=== PATIENT | female | born 1955 | race Caucasian/White ===

== ENCOUNTER → 2017-05-16 | Outpatient (CLI) | payer OTHER ==
[~2017-05-16] MED LIST: CRES5TAB PO; LISI10TA4 PO; OMEP20CA3 PO
--- NOTE | 2017-05-16 11:39 | REPMRS ---
Patient History The patient states she had a clinical breast exam in 02/14 Patient is postmenopausal and is nulliparous. Family history of prostate cancer in father at age 50 or over, breast cancer in sister at age 50 or over, and breast cancer in mother under age 50. Benign cyst aspiration of the right breast, 2011. Digital Woman Screen Mammo: May 16, 2017 - Exam #: [id number] Bilateral CC and MLO view(s) were taken. Technologist: Reva Doshi, Technologist Prior study comparison: May 07, 2016, digital woman screen mammo performed at [facility]. May 02, 2015, digital woman screen mammo performed at [facility]. FINDINGS: The breast tissue is heterogeneously dense. This may lower the sensitivity of mammography. There is a fairly symmetric fibroglandular pattern in both breasts. There has been no interval development of masses, areas of architectural distortion or clusters of microcalcifications typical of malignancy. ASSESSMENT: BI-RADS/ACR category 2 mammogram. Benign finding(s). Given the family history and heterogeneously dense breast parenchyma, consider MRI for further evaluation. Recommendation Routine screening mammogram of both breasts in 1 year (for women over age 40). This mammogram was interpreted with the aid of an FDA-approved computer-aided dectection system. Electronically Signed By: Willie Reddy MD 05/16/17 1595
== END ==
LOC: M WHC 10:05
PROVIDERS: ATTEND Internal Medicine
DX: Z12.31 Encounter for screening mammogram for malignant neoplasm of breast (principal); Z80.3 Family history of malignant neoplasm of breast

== ENCOUNTER → 2017-05-28 | Outpatient (CLI) | payer OTHER ==
[~2017-05-28] VITALS: Ht 167.6 cm; Wt 108.0 kg
[~2017-05-28] MED LIST changes: +LIDOCAINE 2% INJ 100 MG/5 ML SDV (FOR ANES.) As Ordered ONE; +NS 1,000 ML IV ONE; +PROPOFOL 200 MG/20 ML VIAL As Ordered ONE
--- NOTE | 2017-05-28 08:59 | ROOR ---
Patient Name: Montse Eldridge Procedure Date: 05/28/2017 8:46 AM Date of : 1955 Age: 61 Room: [facility] Gender: Female Note Status: Finalized Procedure: Upper GI endoscopy Indications: Heartburn Providers: Med Stoddard MD Referring MD: Jaqueline ISABEL MD Requesting Provider: Medicines: Monitored Anesthesia Care Complications: No immediate complications. Procedure: Pre-Anesthesia Assessment: - The heart rate, respiratory rate, oxygen saturations, blood pressure, adequacy of pulmonary ventilation, and response to care were monitored throughout the procedure. The Endoscope was introduced through the mouth, and advanced to the second part of duodenum. The upper GI endoscopy was accomplished without difficulty. The patient tolerated the procedure well. Findings: The Z-line was regular and was found 35 cm from the incisors. A medium-sized hiatal hernia was present. No other significant abnormalities were identified in a careful examination of the stomach. The exam of the duodenum was otherwise normal. Impression: - Z-line regular, 35 cm from the incisors. - Medium-sized hiatal hernia. - No specimens collected. - The examination was otherwise normal. Recommendation: - Patient has a contact number available for emergencies. The signs and symptoms of potential delayed complications were discussed with the patient. Return to normal activities tomorrow. Written discharge instructions were provided to the patient. - High fiber diet. - Discharge patient to home. - Continue present medications. - Return to referring physician. - The findings and recommendations were discussed with the patient's family. Med Stoddard MD Med Stoddard MD 05/28/2017 8:59:42 AM This report has been signed electronically. Number of Addenda: 0 Note Initiated On: 05/28/2017 8:46 AM Estimated Blood Loss: Estimated blood loss: none.
--- NOTE | 2017-05-28 09:19 | ROOR ---
Patient Name: Montse Eldridge Procedure Date: 05/28/2017 8:47 AM Date of : 1955 Age: 61 Room: [facility] Gender: Female Note Status: Finalized Procedure: Total Colonoscopy to Cecum Indications: Colon cancer screening in patient at increased risk: Family history of 1st-degree relative with colon polyps Providers: Med Stoddard MD Referring MD: Jaqueline ISABEL MD Requesting Provider: Medicines: Monitored Anesthesia Care Complications: No immediate complications. Procedure: Pre-Anesthesia Assessment: - The heart rate, respiratory rate, oxygen saturations, blood pressure, adequacy of pulmonary ventilation, and response to care were monitored throughout the procedure. The Colonoscope was introduced through the anus and advanced to the cecum, identified by appendiceal orifice and ileocecal valve. The colonoscopy was performed without difficulty. The patient tolerated the procedure well. The quality of the bowel preparation was excellent. Findings: The perianal and digital rectal examinations were normal. Non-bleeding internal hemorrhoids were found during retroflexion. The hemorrhoids were Grade I (internal hemorrhoids that do not prolapse). No other significant abnormalities were identified in a careful examination of the remainder of the colon. The exam was otherwise without abnormality on direct and retroflexion views. Impression: - Non-bleeding internal hemorrhoids. - The examination was otherwise normal on direct and retroflexion views. - No specimens collected. - The exam was otherwise normal to the cecum. Recommendation: - Patient has a contact number available for emergencies. The signs and symptoms of potential delayed complications were discussed with the patient. Return to normal activities tomorrow. Written discharge instructions were provided to the patient. - High fiber diet. - Discharge patient to home. - Continue present medications. - Repeat colonoscopy in 5 years for screening purposes. - Return to referring physician. - The findings and recommendations were discussed with the patient's family. Med Stoddard MD Med Stoddard MD 05/28/2017 9:18:36 AM This report has been signed electronically. Number of Addenda: 0 Note Initiated On: 05/28/2017 8:47 AM Estimated Blood Loss: Estimated blood loss: none.
[2017-05-28 09:30] VITALS: BP 137/97
== END ==
LOC: M OPP 07:48
PROVIDERS: ATTEND Internal Medicine Gastroenterology
DX: Z12.11 Encounter for screening for malignant neoplasm of colon (principal); Z83.71 Family history of colonic polyps; K64.0 First degree hemorrhoids; R12 Heartburn; K44.9 Diaphragmatic hernia without obstruction or gangrene; K62.5 Hemorrhage of anus and rectum; I10 Essential (primary) hypertension; E78.00 Pure hypercholesterolemia, unspecified; Z79.899 Other long term (current) drug therapy
CPT/HCPCS: 43235; G0105

== ENCOUNTER → 2018-03-17 | Outpatient (CLI) | payer OTHER | LOC: M EKG 10:14 | DX: Z01.810 Encounter for preprocedural cardiovascular examination (principal); I10 Essential (primary) hypertension; S83.241A Other tear of medial meniscus, current injury, right knee, initial encounter; S83.281A Other tear of lateral meniscus, current injury, right knee, initial encounter; X58.XXXA Exposure to other specified factors, initial encounter; Y92.89 Other specified places as the place of occurrence of the external cause | CPT/HCPCS: 93005 ==

== ENCOUNTER → 2018-05-21 | Outpatient (CLI) | payer OTHER | LOC: M WHC 07:49 | DX: Z12.31 Encounter for screening mammogram for malignant neoplasm of breast (principal) | CPT/HCPCS: 77067 ==

== ENCOUNTER → 2019-05-25 | Outpatient (CLI) | payer OTHER ==
[~2019-05-25] MED LIST changes: -LIDOCAINE 2% INJ 100 MG/5 ML SDV (FOR ANES.) As Ordered ONE; -NS 1,000 ML IV ONE; -PROPOFOL 200 MG/20 ML VIAL As Ordered ONE
--- NOTE | 2019-05-25 09:13 | REPMRS ---
Patient History The patient states she had a clinical breast exam in 01/2019. Family history of breast cancer under age 50 in mother, breast cancer at age 50 or over in sister, prostate cancer at age 50 or over in father. Benign cyst aspiration of the right breast, 2011. No Hormone Replacement Therapy Digital Woman Screen Mammo: May 25, 2019 - Exam #: [id number] Bilateral CC and MLO view(s) were taken. Technologist: Reva Doshi, Technologist Prior study comparison: May 21, 2018, bilateral digital woman screen mammo performed at [facility]. May 16, 2017, digital woman screen mammo performed at [facility]. May 07, 2016, digital woman screen mammo performed at [facility]. May 02, 2015, digital woman screen mammo performed at [facility]. April 26, 2014, digital woman screen mammo performed at [facility]. FINDINGS: The breast tissue is heterogeneously dense. This may lower the sensitivity of mammography. Bilateral screening digital mammogram with tomosynthesis: The patient states that there are no parpable breast lumps or other breast complaints. The patient's Tyrer-Cuzieck Lifetime Breast Carcinoma Risk is: 29.5% There has been no interval development of dominant mass, area of adchitectural distortion, or clustered microcalcifications typical of malignancy. There is a benign macrocalcification in the upper outer quadrant of the left breast, unchanged from 05/21/2018.. . There are no additional findings with tomosynthesis. This mammogram is interpreted with the aid of an FDA approved computer-aided detection system. Not all cancers are identified by mammography. Negative mammogram reports should not delay biopsy if a dominant or clinically suspicious mass is present. Adenosis and dense breasts may obscure an underlying neoplasm. No significant changes when compared with prior studies. Assessment: BI-RADS/ACR category 2 mammogram. Benign Findings. Recommendation Routine screening mammogram in 1 year. Annual MRI is additionally recommended for women with a Tyrer-Cuzieck score greater than 20%. Electronically Signed By: Willie Nation M.D. 05/25/19 0913
== END ==
LOC: M WHC 06:51
PROVIDERS: ATTEND Nurse Practitioner Family
DX: Z12.31 Encounter for screening mammogram for malignant neoplasm of breast (principal); Z80.3 Family history of malignant neoplasm of breast

== ENCOUNTER → 2020-06-06 | Outpatient (CLI) | payer OTHER ==
[~2020-06-06] MED LIST changes: +ASPI81TAEC PO; +OMEP1CAP73 PO; -OMEP20CA3 PO
--- NOTE | 2020-06-06 09:40 | REPMRS ---
Patient History The patient states she had a clinical breast exam in January 2020.Patient is postmenopausal and is nulliparous. Family history of breast cancer under age 50 in mother, breast cancer at age 50 or over in sister, prostate cancer at age 50 or over in father. Benign cyst aspiration of the right breast, 2011. No Hormone Replacement Therapy 3D TOMOSYNTHESIS WAS PERFORMED. VOLPARA DENSITY B. Digital Woman Screen Mammo: June 06, 2020 - Exam #: [id number] Bilateral CC and MLO view(s) were taken. Technologist: Shyla Stein, Technologist Prior study comparison: May 25, 2019, bilateral digital woman screen mammo performed at [facility]. May 21, 2018, bilateral digital woman screen mammo performed at [facility]. FINDINGS: The breast tissue is heterogeneously dense. This may lower the sensitivity of mammography. There has been no change in the appearance of the mammogram from the prior studies. There is a moderate amount of residual fibroglandular tissue which is fairly symmetric. There is no interval development of dominant mass, areas of architectural distortion, or clustered microcalcification typical of malignancy. Assessment: BI-RADS/ACR category 1 mammogram. Negative Mammogram. Recommendation Routine screening mammogram in 1 year (for women over age 40). This mammogram was interpreted with the aid of an FDA-approved computer-aided dectection system. THE LIFETIME RISK OF BREAST CANCER IS 28.6%, THEREFORE SUPPLEMENTAL SCREENING MRI OF THE BREASTS IS RECOMMENDED IN 6 MONTHS. Electronically Signed By: Willie Reddy MD 06/06/20 0939
== END ==
LOC: M WHC 06:43
PROVIDERS: ATTEND Nurse Practitioner Family
DX: Z12.31 Encounter for screening mammogram for malignant neoplasm of breast (principal); Z80.3 Family history of malignant neoplasm of breast

== ENCOUNTER 2020-07-30 13:08 | Observation (INO) | payer OTHER ==
[~2020-07-30] VITALS: Ht 162.6 cm; Wt 108.2 kg
[~2020-07-30 13:08] MED LIST changes: -ASPI81TAEC PO
[2020-07-30] MEDS: NS 1,000 ML IV SCH ×2 (13:45→23:26)
[2020-07-30 13:53] LABS: BASO # 0.1 10^3/uL (0.0-0.2); BASO % 0.6 % (0.0-1.0); EOS # 0.1 10^3/uL (0.0-0.5); HEMATOCRIT 38.8 % (36.0-47.0); HEMOGLOBIN 12.4 g/dl (12.0-15.5); LYMPH # 1.9 10^3/uL (1.5-5.0); LYMPH % 23.5 % (24.0-44.0); MEAN CORPUSCULAR HEMOGLOBIN 28.4 pg (27.0-33.0); MEAN CORPUSCULAR VOLUME 88.8 fl (80.0-96.0); MONO # 0.5 10^3/uL (0.0-0.8); MONO % 6.4 % (0.0-5.0); NEUTROPHILS # 5.6 10^3/uL (1.5-8.5); NEUTROPHILS % 68.3 % (36.0-66.0); PLATELET COUNT, AUTOMATED 259 10^3/uL (150-450); RED BLOOD COUNT 4.37 10^6/uL (4.00-5.40); WHITE BLOOD COUNT 8.2 10^3/uL (4.0-10.0)
[2020-07-30 14:30] LABS: ACETAMINOPHEN LEVEL < 2.0 UG/ML (10.0-30.0); ALBUMIN 4.3 GM/DL (3.2-5.2); ALT/SGPT 37 U/L (12-78); BILIRUBIN,DIRECT 0.2 MG/DL (0.0-0.2); BILIRUBIN,TOTAL 0.5 MG/DL (0.2-1.0); BLOOD UREA NITROGEN 16 MG/DL (7-18); CALCIUM LEVEL 9.3 MG/DL (8.8-10.2); CARBON DIOXIDE LEVEL 28 MEQ/L (21-32); CHLORIDE LEVEL 108 MEQ/L (98-107); CK-MB VALUE MASS 4.3 NG/ML (<3.6); CPK CREATINE PHOSPHOKINASE 336 U/L (26-192); CREATININE FOR GFR 0.97 MG/DL (0.55-1.30); ETHYL ALCOHOL (ETHANOL) < 0.003 % (0.000-0.010); GLOMERULAR FILTRATION RATE > 60.0 (>45); GLUCOSE, FASTING 91 MG/DL (70-100); MB/CK RELATIVE INDEX 1.28 (< OR =4); POTASSIUM SERUM 4.1 MEQ/L (3.5-5.1); SALICYLATE LEVEL < 1.7 MG/DL (5.0-30.0); SODIUM LEVEL 144 MEQ/L (136-145); TOTAL PROTEIN 7.8 GM/DL (6.4-8.2); TROPONIN I < 0.02 NG/ML (< 0.10)
[2020-07-30 15:44] LABS: AMPHETAMINES LEVEL URINE NEGATIVE (NEGATIVE); BARBITURATES URINE NEGATIVE (NEGATIVE); BENZODIAZEPINES URINE NEGATIVE (NEGATIVE); CANNABINOIDS URINE NEGATIVE (NEGATIVE); COCAINE METABOLITE URINE NEGATIVE (NEGATIVE); METHADONE URINE NEGATIVE (NEGATIVE); OPIATES URINE NEGATIVE (NEGATIVE); PHENCYCLIDINE URINE NEGATIVE (NEGATIVE)
[2020-07-30 16:00] VITALS: BP 163/72
[2020-07-30] MEDS ORDERED: ACETAMINOPHEN TAB 650MG DOSE (2X325MG) PO PRN (16:15)
[2020-07-30] MEDS ORDERED: MOM 30ML SUSPENSION UDC PO PRN (16:15)
[2020-07-30] MEDS ORDERED: MAALOX 30 ML SUSP *UDC PO PRN (16:15)
--- NOTE | 2020-07-30 16:26 | HPEPDOC ---
General Date of Admission Date of Service: Jul 30, 2020 Chief Complaint The patient is a 64-year-old female admitted with a reason for visit of AMS. Source: Patient, Family Exam Limitations: Other (transiet loss of memory) Severity: Other (not applicable) Associated Symptoms: Other (confusion) History of Present Illness 64 YOF with PMHX of HTN,Hyperlipedemia, GERD was found to be confused by her nephew, she did not remember that where she is and what she was doing outside the house. Pt now is starting to begin remembering the event but still does not remember the details. Pts nephew brought her back to the house and called EMS, Pt at present is alert, oriented X3, sister at bedside, offers no complaints, no CP,no SOB, No N/V/D Home Medications Scheduled Lisinopril (Lisinopril) 10 Mg Tab, 10 MG PO DAILY, (Reported) Omeprazole (Omeprazole) 20 Mg Cap, 20 MG PO DAILY, (Reported) Rosuvastatin Calcium (Crestor) 5 Mg Tab, 5 MG PO QHS, (Reported) Allergies Coded Allergies: No Known Allergies (Unverified , 05/19/17) Past Medical History Medical History HTN,Hyperlipedemia Family History Hx of HTN, TIA+ Father Breast cancer =Mother Social History * Smoker: Denies Alcohol: Denies Drugs: denies A-FIB/CHADSVASC A-FIB History Current/History of A-Fib/PAF?: No Review of Systems Constitutional: Denies: Chills, Fever, Malaise, Night Sweats, Weakness, Fatigue, Weight Loss, Lethargy, Other Eyes: Denies: Pain, Vision change, Conjunctivae inflammation, Eyelid inflammation, Redness, Other ENT: Denies: Head Aches, Ear Pain, Dysphagia, Sinus Congestion, Post Nasal Drip, Sore Throat, Epistaxis, Other Symptoms Skin: Denies: Rash, Lesions, Jaundice, Bruising, Itching, Dry, Breakdown, Nail Changes, Other Pulmonary: Denies: Dyspnea, Cough, Pleuritic Chest Pain, Other Symptoms Cardiovascular: Denies: Chest Pain, Palpitations, Orthopnea, Paroxysmal Noc. Dyspnea, Edema, Lt Headedness, Other Symptoms Gastrointestinal: Denies: Nausea, Vomiting, Abdominal Pain, Diarrhea, Constipation, Melena, Hematochezia, Other Symptoms Genitourinary: Denies: Dysuria, Frequency, Incontinence, Hematuria, Retention, Other Symptoms Hematologic: Denies: Bruising, Bleeding Excessively, Petecchia, Purpura, Enlarged Lymph Nodes, Other Hematologic Neurological: Reports: Confusion Psych: Denies: Mood Normal, Anxiety, Depression, Memory Issues, Thoughts of Self Harm, Anger, Thoughts of Harming Other, Other Psych Physical Examination General Exam: Positive: Alert, Cooperative Eye Exam: Positive: PERRLA, Conjunctiva & lids normal ENT Exam: Positive: Atraumatic Neck Exam: Positive: Supple Chest Exam: Positive: Clear to auscultation, Normal air movement Heart Exam: Positive: Rate Normal, Normal S1, Normal S2 Abdomen Exam: Positive: Normal bowel sounds, Soft Skin Exam: Positive: Nl turgor and temperature Neuro Exam: Positive: Strength at 5/5 X4 ext, Cranial Nerves 3-12 NL Psych Exam: Positive: Mood NL, Oriented x 3 Vital Signs Vital Signs Date Time Temp Pulse Resp B/P (MAP) Pulse Ox O2 Delivery O2 Flow Rate FiO2 07/30/20 14:40 85 17 165/77 (106) 97 Room Air Laboratory Data Labs 24H Laboratory Tests 2 07/30/20 13:42: Immature Granulocyte % (Auto) 0.2, Neutrophils (%) (Auto) 68.3H, Lymphocytes (%) (Auto) 23.5L, Monocytes (%) (Auto) 6.4H, Eosinophils (%) (Auto) 1.0, Basophils (%) (Auto) 0.6, Neutrophils # (Auto) 5.6, Lymphocytes # (Auto) 1.9, Monocytes # (Auto) 0.5, Eosinophils # (Auto) 0.1, Basophils # (Auto) 0.1, Nucleated Red Blood Cells % (auto) 0.0, Anion Gap 8, Glomerular Filtration Rate > 60.0, Lactic Acid Level 0.9, Calcium Level 9.3, Total Bilirubin 0.5, Direct Bilirubin 0.2, Aspartate Amino Transf (AST/SGOT) 19, Alanine Aminotransferase (ALT/SGPT) 37, Alkaline Phosphatase 109, Total Creatine Kinase 336H, Creatine Kinase MB 4.3H, Creatine Kinase MB Relative Index 1.28, Troponin I < 0.02, Total Protein 7.8, Albumin 4.3, Albumin/Globulin Ratio 1.2, Thyroid Stimulating Hormone (TSH) 1.440, Salicylates Level < 1.7L, Acetaminophen Level < 2.0L, Ethyl Alcohol Level < 0.003 07/30/20 15:10: Urine Color YELLOW, Urine Appearance CLEAR, Urine pH 5.0, Urine Specific [place] 1.005, Urine Protein NEGATIVE, Urine Glucose (UA) NEGATIVE, Urine Ketones NEGATIVE, Urine Blood NEGATIVE, Urine Nitrite NEGATIVE, Urine Bilirubin NEGATIVE, Urine Urobilinogen 0.2, Urine Leukocyte Esterase NEGATIVE, Urine WBC (Auto) 5H, Urine RBC (Auto) 2, Urine Hyaline Casts (Auto) 0, Urine Bacteria (Auto) 1+H, Urine Squamous Epithelial Cells 0, Urine Mucus (Auto) SMALL, Urine Sperm (Auto) , Urine Opiates Screen NEGATIVE, Urine Methadone Screen NEGATIVE, Urine Barbiturates Screen NEGATIVE, Urine Phencyclidine Screen NEGATIVE, Urine Amphetamines Screen NEGATIVE, Urine Benzodiazepines Screen NEGATIVE, Urine Cocaine Metabolite Screen NEGATIVE, Urine Cannabinoids Screen NEGATIVE CBC/BMP Laboratory Tests 07/30/20 13:42 Problems (1) TIA (transient ischemic attack) Status: Acute Problem Text: admit to med/surg with tele MR brain MRA brain and carotids Echo Add ASA 81 mg PO daily Continue Crestor Lipid profile in am DVT prophylaxis with heparin Activity as tolerated Diet -2gm NA PT/OT eval (2) Confusion Status: Acute Problem Text: As per #1 (3) Hyperlipemia Status: Chronic Problem Text: lipid profile in am Continue Crestor (4) HTN (hypertension) Status: Chronic Problem Text: Continue lisinopril Plan / VTE VTE Prophylaxis Ordered?: Yes JV BENÍTEZ MD Jul 30, 2020 16:26
[2020-07-30] MEDS ORDERED: lisinopriL 10 MG TAB PO ONE (18:00)
[2020-07-30] MEDS: ASPIRIN 81 MG ENTERIC TAB PO SCH (18:11)
[2020-07-30] MEDS: ROSUVASTATIN 10 MG TAB (CRESTOR) PO SCH (20:04)
[2020-07-30] MEDS ORDERED: PILL CUTTER 1 EACH XX PRN (20:15)
[2020-07-30] MEDS: HEPARIN SOD (PORCINE) 5000UNITS/ML 1ML VIAL/SYRINGE SC SCH (21:00)
[2020-07-30 22:00] VITALS: BP 143/89
[2020-07-31 06:00] VITALS: BP 117/66
[2020-07-31] MEDS: HEPARIN SOD (PORCINE) 5000UNITS/ML 1ML VIAL/SYRINGE SC SCH ×3 (06:06→21:00)
[2020-07-31 06:31] LABS: HEMOGLOBIN 11.9 g/dl (12.0-15.5); MEAN CORPUSCULAR HEMOGLOBIN 28.3 pg (27.0-33.0); MEAN CORPUSCULAR HGB CONC 31.3 g/dl (32.0-36.5); MEAN CORPUSCULAR VOLUME 90.3 fl (80.0-96.0); PLATELET COUNT, AUTOMATED 260 10^3/uL (150-450); RED BLOOD COUNT 4.21 10^6/uL (4.00-5.40); WHITE BLOOD COUNT 6.6 10^3/uL (4.0-10.0)
[2020-07-31 06:53] LABS: ALBUMIN 3.8 GM/DL (3.2-5.2); ALT/SGPT 34 U/L (12-78); BILIRUBIN,TOTAL 0.5 MG/DL (0.2-1.0); BLOOD UREA NITROGEN 15 MG/DL (7-18); CALCIUM LEVEL 8.9 MG/DL (8.8-10.2); CARBON DIOXIDE LEVEL 26 MEQ/L (21-32); CHLORIDE LEVEL 111 MEQ/L (98-107); CHOLESTEROL LEVEL 182 MG/DL (<200); CHOLESTEROL RISK RATIO 3.309 (<5); CREATININE FOR GFR 0.87 MG/DL (0.55-1.30); GLOMERULAR FILTRATION RATE > 60.0 (>45); GLUCOSE, FASTING 95 MG/DL (70-100); HDL CHOLESTEROL 55 MG/DL (>40); LDL CHOLESTEROL 96 MG/DL (<100); MAGNESIUM LEVEL 2.2 MG/DL (1.8-2.4); NON-HDL-C 127 MG/DL; POTASSIUM SERUM 4.3 MEQ/L (3.5-5.1); SODIUM LEVEL 143 MEQ/L (136-145); TOTAL PROTEIN 7.3 GM/DL (6.4-8.2); TRIGLYCERIDES LEVEL 157 MG/DL (<150)
[2020-07-31] MEDS: OMEPRAZOLE 20 MG CAP PO SCH (08:36)
[2020-07-31] MEDS: lisinopriL 10 MG TAB PO SCH (08:36)
[2020-07-31] MEDS: ASPIRIN 81 MG ENTERIC TAB PO SCH (08:36)
[2020-07-31] MEDS: NS 1,000 ML IV SCH (08:37)
--- NOTE | 2020-07-31 11:07 | IPNPDOC ---
Subjective Date Seen The patient was seen on 07/31/20. Subjective Chief Complaint/HPI pt offers no complaints but doesnt not partially remember yesterdays events General: Denies: ROS Unobtainable, Chills, Night Sweats, Fatigue, Malaise, Normal Appetite, Other Symptoms Constitutional: Denies: Chills, Fever, Malaise, Night Sweats, Weakness, Fatigue, Weight Loss, Lethargy, Other Skin: Denies: Rash, Lesions, Jaundice, Bruising, Itching, Dry, Breakdown, Nail Changes, Other Pulmonary: Denies: Dyspnea, Cough, Pleuritic Chest Pain, Other Symptoms Cardiovascular: Denies: Chest Pain, Palpitations, Orthopnea, Paroxysmal Noc. Dyspnea, Edema, Lt Headedness, Other Symptoms Gastrointestinal: Denies: Nausea, Vomiting, Abdominal Pain, Diarrhea, Constipation, Melena, Hematochezia, Other Symptoms Musculoskeletal: Denies: Neck Pain, Back Pain, Shoulder Pain, Arm Pain, Hand Pain, Leg Pain, Foot Pain, Joint Pain, Muscle Pain, Spasms, Other Symptoms Neurological: Denies: Weakness, Numbness, Incoordination, Change in speech, Confusion, Seizures, Other Symptoms Psych: Denies: Mood Normal, Anxiety, Depression, Memory Issues, Thoughts of Self Harm, Anger, Thoughts of Harming Other, Other Psych Objective Physical Examination Neck Exam: Positive: Supple Chest Exam: Positive: Clear to auscultation, Normal air movement Heart Exam: Positive: Rate Normal, Normal S1, Normal S2 Abdomen Exam: Positive: Normal bowel sounds, Soft Skin Exam: Positive: Nl turgor and temperature Neuro Exam: Positive: Strength at 5/5 X4 ext, Cranial Nerves 3-12 NL Assessment /Plan Problems (1) TIA (transient ischemic attack) Status: Acute Problem Text: Echo done report pending MRI brain,MRA brain and carotid pending ASA was added Lipid profile WNL Continue crestor Possible [place], if all W/U WNL (2) Hyperlipemia Status: Chronic Problem Text: continue home meds (3) HTN (hypertension) Status: Chronic Problem Text: continue home meds Plan/VTE VTE Prophylaxis Ordered?: Yes VS, I&O, 24H, Fishbone Vital Signs/I&O Vital Signs Date Time Temp Pulse Resp B/P (MAP) Pulse Ox O2 Delivery O2 Flow Rate FiO2 07/31/20 08:36 158/82 07/31/20 06:00 97.6 70 20 99 Room Air I&O- Last 24 Hours up to 6 AM 07/31/20 06:00 Intake Total 1460 ml Output Total 1800 ml Balance -340 ml Laboratory Data 24H LABS Laboratory Tests 2 07/30/20 13:42: Immature Granulocyte % (Auto) 0.2, Neutrophils (%) (Auto) 68.3H, Lymphocytes (%) (Auto) 23.5L, Monocytes (%) (Auto) 6.4H, Eosinophils (%) (Auto) 1.0, Basophils (%) (Auto) 0.6, Neutrophils # (Auto) 5.6, Lymphocytes # (Auto) 1.9, Monocytes # (Auto) 0.5, Eosinophils # (Auto) 0.1, Basophils # (Auto) 0.1, Nucleated Red Blood Cells % (auto) 0.0, Anion Gap 8, Glomerular Filtration Rate > 60.0, Lactic Acid Level 0.9, Calcium Level 9.3, Total Bilirubin 0.5, Direct Bilirubin 0.2, Aspartate Amino Transf (AST/SGOT) 19, Alanine Aminotransferase (ALT/SGPT) 37, Alkaline Phosphatase 109, Total Creatine Kinase 336H, Creatine Kinase MB 4.3H, Creatine Kinase MB Relative Index 1.28, Troponin I < 0.02, Total Protein 7.8, Albumin 4.3, Albumin/Globulin Ratio 1.2, Thyroid Stimulating Hormone (TSH) 1.440, Salicylates Level < 1.7L, Acetaminophen Level < 2.0L, Ethyl Alcohol Level < 0.003 07/30/20 15:10: Urine Color YELLOW, Urine Appearance CLEAR, Urine pH 5.0, Urine Specific [place] 1.005, Urine Protein NEGATIVE, Urine Glucose (UA) NEGATIVE, Urine Ketones NEGATIVE, Urine Blood NEGATIVE, Urine Nitrite NEGATIVE, Urine Bilirubin NE GATIVE, Urine Urobilinogen 0.2, Urine Leukocyte Esterase NEGATIVE, Urine WBC (Auto) 5H, Urine RBC (Auto) 2, Urine Hyaline Casts (Auto) 0, Urine Bacteria (Auto) 1+H, Urine Squamous Epithelial Cells 0, Urine Mucus (Auto) SMALL, Urine Sperm (Auto) , Urine Opiates Screen NEGATIVE, Urine Methadone Screen NEGATIVE, Urine Barbiturates Screen NEGATIVE, Urine Phencyclidine Screen NEGATIVE, Urine Amphetamines Screen NEGATIVE, Urine Benzodiazepines Screen NEGATIVE, Urine Cocaine Metabolite Screen NEGATIVE, Urine Cannabinoids Screen NEGATIVE 07/31/20 06:05: Nucleated Red Blood Cells % (auto) 0.0, Anion Gap 6L, Glomerular Filtration Rate > 60.0, Calcium Level 8.9, Total Bilirubin 0.5, Aspartate Amino Transf (AST/SGOT) 23, Alanine Aminotransferase (ALT/SGPT) 34, Alkaline Phosphatase 97, Total Protein 7.3, Albumin 3.8, Albumin/Globulin Ratio 1.1L, Magnesium Level 2.2, Triglycerides Level 157H, Total Cholesterol 182, LDL Cholesterol 96, Non- HDL Cholesterol (LDL + VLDL) 127, Total HDL Cholesterol 55, Cholesterol/HDL Ratio 3.309 CBC/BMP Laboratory Tests 07/30/20 13:42 07/31/20 06:05 JV BENÍTEZ MD Jul 31, 2020 11:07
[2020-07-31 14:00] VITALS: BP 131/67
--- NOTE | 2020-07-31 17:24 | REPVR ---
PROCEDURE INFORMATION: Exam: MR Head Without Contrast Exam date and time: 07/31/2020 4:48 PM Age: 64 years old Clinical indication: Other: TIA TECHNIQUE: Imaging protocol: MR of the head without contrast. COMPARISON: CT Head without contrast 07/30/2020 1:14 PM FINDINGS: Brain: Scattered nonspecific T2/FLAIR hyperintensities of the periventricular and deep subcortical white matter, most likely secondary to chronic small vessel ischemic change. No intracranial hemorrhage or extra-axial fluid collection. No evidence of mass effect or midline shift. No restricted diffusion to suggest acute infarct. Ventricles: No ventriculomegaly. Bones/joints: Unremarkable. Sinuses: Unremarkable. Mastoid air cells: No mastoid effusion. Orbits: Unremarkable. Soft tissues: Unremarkable. IMPRESSION: No acute intracranial pathology. Electronically signed by: Leander Ramírez On 07/31/2020 17:23:46 PM
--- NOTE | 2020-07-31 17:24 | REPVR ---
PROCEDURE INFORMATION: Exam: MR Angiogram Head Without Contrast, Arteries Exam date and time: 07/31/2020 4:48 PM Age: 64 years old Clinical indication: Memory loss; Type not specified; Additional info: TIA TECHNIQUE: Imaging protocol: MR angiogram head without contrast. Exam focused on the arteries. COMPARISON: CT Head without contrast 07/30/2020 1:14 PM FINDINGS: ANTERIOR CIRCULATION: Right internal carotid artery: Intracranial segment is patent with no significant stenosis. No aneurysm. Right middle cerebral artery: No occlusion or significant stenosis. No aneurysm. Right anterior cerebral artery: No occlusion or significant stenosis. No aneurysm. Left internal carotid artery: Intracranial segment is patent with no significant stenosis. No aneurysm. Left middle cerebral artery: No occlusion or significant stenosis. No aneurysm. Left anterior cerebral artery: No occlusion or significant stenosis. No aneurysm. POSTERIOR CIRCULATION: Right vertebral artery: No occlusion or significant stenosis. No aneurysm. Left vertebral artery: No occlusion or significant stenosis. No aneurysm. Basilar artery: No occlusion or significant stenosis. No aneurysm. Right posterior cerebral artery: Patent and type right posterior cerebral artery. No aneurysm. Left posterior cerebral artery: Patent and type left posterior cerebral artery. No aneurysm. IMPRESSION: No MRA evidence of intracranial arterial occlusion or significant stenosis. Electronically signed by: Leander Ramírez On 07/31/2020 17:24:45 PM
--- NOTE | 2020-07-31 17:26 | REPVR ---
PROCEDURE INFORMATION: Exam: MR Angiography Neck Without Contrast Exam date and time: 07/31/2020 4:48 PM Age: 64 years old Clinical indication: TIA TECHNIQUE: Imaging protocol: Magnetic resonance angiography of the neck without contrast. COMPARISON: No relevant prior studies available. FINDINGS: Right common carotid artery: No significant stenosis or occlusion. Right internal carotid artery: Extracranial segment is patent without evidence of hemodynamically significant stenosis. Right external carotid artery: Unremarkable. Right vertebral artery: No significant stenosis or occlusion. Left common carotid artery: No significant stenosis or occlusion. Left internal carotid artery: Extracranial segment is patent without evidence of hemodynamically significant stenosis. Left external carotid artery: Unremarkable. Left vertebral artery: No significant stenosis or occlusion. IMPRESSION: No MRA evidence of occlusion or significant stenosis in the arteries of the neck. REFERENCES: NASCET CRITERIA. The degree of internal carotid artery stenosis is based on NASCET criteria. Normal is no stenosis. Mild is less than 50% stenosis. Moderate is 50-69% stenosis. Severe is 70% to 99% stenosis. Total occlusion is no detectable patent lumen. Electronically signed by: Leander Ramírez On 07/31/2020 17:25:54 PM
[2020-07-31] MEDS: ROSUVASTATIN 10 MG TAB (CRESTOR) PO SCH (20:59)
[2020-07-31 22:00] VITALS: BP 136/62
[2020-08-01] MEDS: HEPARIN SOD (PORCINE) 5000UNITS/ML 1ML VIAL/SYRINGE SC SCH (05:10)
[2020-08-01 06:00] VITALS: BP 134/64
[2020-08-01] MEDS ORDERED: ASPI81TAEC PO (07:39)
[2020-08-01 07:56] VITALS: BP 155/99
[2020-08-01] MEDS: OMEPRAZOLE 20 MG CAP PO SCH (07:56)
[2020-08-01] MEDS: lisinopriL 10 MG TAB PO SCH (07:56)
[2020-08-01] MEDS: ASPIRIN 81 MG ENTERIC TAB PO SCH (07:56)
--- NOTE | 2020-08-01 14:30 | DS.PDOC ---
Discharge Summary General Date of Admission Jul 30, 2020 at 13:09 Date of Discharge 08/01/20 Discharge Summary PROCEDURES PERFORMED DURING STAY: [None]. ADMITTING DIAGNOSES: 1. [confusion,TIA]. DISCHARGE DIAGNOSES: 1. [TIA,HTN,dyslipedemia]. COMPLICATIONS/CHIEF COMPLAINT: Confusion / Tia. HISTORY OF PRESENT ILLNESS: [64 YOF with PMHX of HTN,Hyperlipedemia, GERD was found to be confused by her nephew, she did not remember that where she is and what she was doing outside the house. Pt now is starting to begin remembering the event but still does not remember the details. Pts nephew brought her back to the house and called EMS, Pt at present is alert, oriented X3, sister at bedside, offers no complaints, no CP,no SOB, No N/V/D]. HOSPITAL COURSE: [pt was admitted with possible TIA. all W/U including CT/MR/MRA/ECHO all WNL. Pt has been added on ASA 81 mg daily. pt will continue all her home meds including Statins. F/U with [facility] neuro as out pt in 1-2 weeks]. DISCHARGE MEDICATIONS: Please see below. ALLERGIES: Please see below. PHYSICAL EXAMINATION ON DISCHARGE: VITAL SIGNS: Please see below. GENERAL: [NL] HEENT: [MUKUND/EOMI] NECK: [supple] CARDIOVASCULAR EXAMINATION: [s1 s2 regular] RESPIRATORY EXAMINATION: [clear to A&P] ABDOMINAL EXAMINATION: [benign] EXTREMITIES: [no CCE] SKIN: [NL] NEUROLOGICAL EXAMINATION: [no deficit] PSYCHIATRIC EXAMINATION: [nl] LABORATORY DATA: Please see below. IMAGING: [MRI brain,MRA brain and MRA carotid are NL, ECHO: discussed with dr Dawn: WNL] PROGNOSIS: [good] ACTIVITY: [As tolerated]. DIET: [regular] DISCHARGE PLAN: [home] DISPOSITION: Home, Self-Care. DISCHARGE INSTRUCTIONS: 1. [as per DC instruc:]. ITEMS TO FOLLOWUP ON ON OUTPATIENT: 1. [F/U with Dr CHRISTINE (neuro) in 1-2 weeks]. DISCHARGE CONDITION: [Stable]. TIME SPENT ON DISCHARGE:25 minutes. Vital Signs/I&Os Vital Signs Date Time Temp Pulse Resp B/P (MAP) Pulse Ox O2 Delivery O2 Flow Rate FiO2 08/01/20 07:56 155/99 08/01/20 06:00 97.6 68 17 97 Room Air I&O- Last 24 Hours up to 6 AM 08/01/20 06:00 Intake Total 3336 ml Output Total 2100 ml Balance 1236 ml Discharge Medications Scheduled Aspirin (Aspirin EC) 81 Mg Tablet.dr, 81 MG PO DAILY Lisinopril (Lisinopril) 10 Mg Tab, 10 MG PO DAILY, (Reported) Omeprazole (Omeprazole) 20 Mg Cap, 20 MG PO DAILY, (Reported) Rosuvastatin Calcium (Crestor) 5 Mg Tab, 5 MG PO QHS, (Reported) Allergies Coded Allergies: No Known Allergies (Unverified , 05/19/17) JV BENÍTEZ MD Aug 01, 2020 14:30
--- NOTE | 2020-08-02 10:39 | ECHO ---
DATE OF PROCEDURE: 07/31/2020 Age: Gender: Female Height: 64 inches Weight: 108 kg REFERRING PHYSICIAN: Dr. Tapia INDICATION: Cerebrovascular accident (CVA). MEASUREMENTS: IVS 1.0 LV 4.9 LVPW 0.9 LA 3.9 Aorta 2.7 RV 2.5 Left atrial volume index 31. Mitral E wave velocity 107, A wave 97 E prime septal 9.1 E prime lateral 8.1 FINDINGS: The study is of rather limited technical quality with difficult visualization. The patient is in sinus rhythm. Normal LV size with overall likely normal LV systolic function based on fair visualization. No segmental wall motion abnormalities are appreciated. Right ventricle is also normal size and systolic function. Left atrium is mildly enlarged. Aortic, mitral and tricuspid valves appear normal. Pulmonic valve was not well visualization. No pericardial effusion is noted. Inferior vena cava was not seen. Aortic root is normal. Aortic arch and abdominal aorta were not well seen. Doppler interrogation reveals competent mitral, aortic and tricuspid valves. Mitral inflow pattern and tissue Doppler imaging of mitral annulus reveals normal diastolic function, even though tissue Doppler velocities of mitral annulus are mildly reduced. CONCLUSIONS: 1. Study is of fair technical quality, the patient is in sinus rhythm. 2. Normal LV size with LV systolic function and probably normal diastolic function. 3. No significant valvular disease. 4. Unable to estimate central venous pressure and pulmonary artery pressure. MTDD
--- NOTE | 2020-08-17 16:31 | ECGEPIP ---
SINUS RHYTHM PRWP SEE SCANNED DOWNTIME REPORT MTDD
--- NOTE | 2020-08-29 07:19 | REP ---
NONCONTRAST HEAD CT CLINICAL: Neurological symptoms. TECHNIQUE: Axial noncontrast images from the skull base to the vertex with coronal reformations. FINDINGS: Age-related atrophy and microvascular ischemic changes noted. Ventricles are symmetric. Reddy-white differentiation is maintained. No acute intracranial hemorrhage, mass, or mass effect. No extra-axial fluid collection. The calvarium is intact. The paranasal sinuses and mastoid air cells are clear. IMPRESSION: Age-related atrophy and microvascular ischemic changes. No acute intracranial pathology appreciated. MTDD
--- NOTE | 2020-08-29 07:20 | REP ---
PORTABLE CHEST X-RAY CLINICAL: Altered mental status. COMPARISON: None. FINDINGS: Mediastinum and cardiac silhouette normal. Lung hall clear. No acute consolidation, effusion, or pneumothorax. Skeletal structures are intact. IMPRESSION: Normal portable chest x-ray. MTDD
== END 2020-08-01 10:49 | disposition home or self-care (01) ==
LOC: EDBD 13:08 → M ED 13:08 → M ED INP 13:09 → M MSPAV 16:56
PROVIDERS: ADMIT Internal Medicine; ATTEND Internal Medicine
DX: G45.9 Transient cerebral ischemic attack, unspecified (principal); R41.0 Disorientation, unspecified; I10 Essential (primary) hypertension; E78.5 Hyperlipidemia, unspecified; K21.9 Gastro-esophageal reflux disease without esophagitis; Z79.82 Long term (current) use of aspirin; Z79.899 Other long term (current) drug therapy
CPT/HCPCS: 36415; 70450; 70544; 70547; 70551; 71045; 80048; 80053; 80061; 80076; 80307; 81001; 82550; 82553; 83605; 83735; 84443; 84484; 85025; 85027; 93005; 93041; 93306; 94760; 96360; 96361; 96372; 97161; 97165; 99285; G0480; J1644

== ENCOUNTER → 2021-06-28 | Outpatient (CLI) | payer OTHER ==
[~2021-06-28] MED LIST changes: +ASPI-569 PO; +LISI10TA22 PO; -LISI10TA4 PO
--- NOTE | 2021-06-28 10:00 | REP ---
INDICATION: SCREENING MAMMO. COMPARISON: Multiple TECHNIQUE: Digital screening mammography was carried out bilaterally in the CC and MLO projections using both 2D and 3D modalities and compared to the prior exams. By history, the patient has no complaints of a palpable breast abnormality or other significant breast complaints. In addition to screening mammography the patient underwent bilateral whole breast screening ultrasonography using anatomical intelligence and shear wave elastography. This is secondary to the patient's dense breast pattern. FINDINGS: The breasts are unchanged in size and shape. Once again, dense heterogenous somewhat nodular fibroglandular elements are seen bilaterally in a stable appearing pattern but to such a degree that the sensitivity of the mammogram in detecting cancer somewhat decreased. There are no chelsea soft tissue densities or spiculated masses. There is no internal architectural distortion. Stable benign calcifications are again seen bilaterally. There is no skin thickening or nipple retraction. Whole breast screening ultrasonography right breast: At the 6 o'clock position there is a 4 mm sized singly thinly septated anechoic structure which exhibits posterior wall enhancement and increased through transmission. Shear wave elastography performed and this shows low kPa values of approximately 13. At the 12 o'clock position there is a 7 mm sized singly septated anechoic structure which exhibits posterior wall enhancement and increased through transmission. Shear wave elastography on this lesion shows a low kPa value of 19. Whole breast screening ultrasonography left breast: At the 11 o'clock position there is a 9 mm sized anechoic structure which exhibits posterior wall enhancement and increased through transmission. Shear wave elastography was performed on this showing a low kPa value of 20. At the 1 o'clock position a singly septated anechoic structure measuring 6 mm is identified. This exhibits posterior wall enhancement and increased through transmission. Shear wave elastography was performed on this showing a low kPa value of 20. The Volpara volumetric breast density pattern is C. IMPRESSION: BIRADS/ACR category 2 benign findings mammogram. ACR category 2 benign findings bilateral whole breast screening ultrasound showing cysts as described above. Secondary to the patient's dense breast parenchymal pattern and breast density score of C along with the patient's high Tyrer Cuzick score bilateral breast MRI examination is recommended. This patient's Tyrer-Cuzick lifetime breast cancer risk assessment score is 27.6%. This mammogram was interpreted with the aid of an FDA-approved computer-aided detection system. The patient states she had a clinical breast exam in January of 2021. The patient letter being requested is M1. RECOMMENDATION: As above <Electronically signed by Clayton Gibson > 06/28/21 [id number]
== END ==
LOC: M WHC 07:58
PROVIDERS: ATTEND Nurse Practitioner Adult Health
DX: R92.2 Inconclusive mammogram (principal)

== ENCOUNTER → 2021-08-15 | Outpatient (CLI) | payer OTHER ==
[~2021-08-15] MED LIST changes: +PROHANCE 279.3MG/ML 15ML VIAL As Ordered ONE; +PROHANCE 279.3MG/ML 5ML VIAL As Ordered ONE
--- NOTE | 2021-08-15 13:23 | REP ---
INDICATION: FAMILY HISTORY BREAST CA. COMPARISON: Mammogram 06/28/2021. TECHNIQUE: Three Heather MRI imaging was performed with a dedicated breast coil. Axial, coronal, and sagittal T1 and T2 weighted scans were obtained with and without fat saturation in the usual fashion. The study includes dynamically acquired post gadolinium-enhanced imaging with image subtraction. Maximum intensity projection and multi planar reformation imaging is included as well. This study is interpreted with the aid of [employer], an FDA approved computer aided detection (CAD) software program, on a dedicated breast MRI workstation. The gadolinium enhancement dose is 20 mL of intravenous ProHance. FINDINGS: There is moderate symmetrical fibroglandular tissue present. There is no axillary adenopathy. There is an oval nonenhancing benign cyst in the central right breast approximately 1 cm in diameter. There is mild diffuse background parenchymal enhancement. There is no suspicious enhancing mass or morphologic abnormality. IMPRESSION: BI-RADS category 2, benign breast MRI. No suspicious enhancing mass or morphologic abnormality. Yearly supplemental screening MRI of the breasts is recommended for patients with an elevated lifetime risk of breast cancer of 20% or greater, in addition to annual screening mammography, staggered every 6 months. <Electronically signed by Willie Reddy > 08/15/21 [id number]
== END ==
LOC: M RAD 10:50
PROVIDERS: ATTEND Nurse Practitioner Adult Health
DX: Z80.3 Family history of malignant neoplasm of breast (principal)

== ENCOUNTER → 2022-02-11 | Outpatient (CLI) | payer OTHER ==
[~2022-02-11] MED LIST changes: -PROHANCE 279.3MG/ML 15ML VIAL As Ordered ONE; -PROHANCE 279.3MG/ML 5ML VIAL As Ordered ONE
== END ==
LOC: M WUC 14:17
PROVIDERS: ATTEND Physician Assistant Medical
DX: M54.2 Cervicalgia (principal)

== ENCOUNTER → 2022-05-18 | Outpatient (CLI) | payer OTHER | LOC: M RAD 09:20 | PROVIDERS: ATTEND Nurse Practitioner Adult Health | DX: M54.2 Cervicalgia (principal) ==

== ENCOUNTER → 2022-07-19 | Outpatient (CLI) | payer OTHER | LOC: M WHC 07:18 | PROVIDERS: ATTEND Nurse Practitioner Adult Health | DX: Z12.31 Encounter for screening mammogram for malignant neoplasm of breast (principal) ==

== ENCOUNTER → 2022-08-09 | Outpatient (CLI) | payer OTHER | LOC: M WHC 08:06 | PROVIDERS: ATTEND Nurse Practitioner Adult Health | DX: R92.2 Inconclusive mammogram (principal) ==

== ENCOUNTER → 2023-08-12 | Outpatient (CLI) | payer MEDICARE, OTHER | LOC: M WHC 06:46 | PROVIDERS: ATTEND Nurse Practitioner Adult Health | DX: Z12.31 Encounter for screening mammogram for malignant neoplasm of breast (principal) ==

== ENCOUNTER → 2023-11-18 | Outpatient (CLI) | payer MEDICARE, OTHER | LOC: M WUC 11:12 | PROVIDERS: ATTEND Nurse Practitioner Adult Health | DX: M79.671 Pain in right foot (principal) ==

== ENCOUNTER → 2024-08-09 | Outpatient (CLI) | payer MEDICARE, OTHER | LOC: M WUC 09:17 | PROVIDERS: ATTEND Registered Nurse | DX: M79.661 Pain in right lower leg (principal); M25.571 Pain in right ankle and joints of right foot; M19.071 Primary osteoarthritis, right ankle and foot ==

== ENCOUNTER 2024-08-15 08:36 | Emergency (ER) | payer MEDICARE, OTHER ==
[~2024-08-15] VITALS: Ht 162.6 cm; Wt 103.6 kg
[2024-08-15] MEDS ORDERED: ISOVUE-370 76% 100ML VIAL As Ordered ONE (08:55)
[2024-08-15 10:15] LABS: BASO # 0.1 10^3/uL (0.0-0.2); BASO % 0.8 % (0.0-1.0); EOS # 0.1 10^3/uL (0.0-0.5); EOS % 1.4 % (0.0-3.0); HEMATOCRIT 35.9 % (36.0-47.0); HEMOGLOBIN 11.7 g/dl (12.0-15.5); LYMPH # 2.1 10^3/uL (1.5-5.0); LYMPH % 29.2 % (24.0-44.0); MEAN CORPUSCULAR HEMOGLOBIN 29.3 pg (27.0-33.0); MEAN CORPUSCULAR HGB CONC 32.6 g/dl (32.0-36.5); MONO # 0.6 10^3/uL (0.0-0.8); MONO % 7.9 % (2.0-8.0); NEUTROPHILS # 4.3 10^3/uL (1.5-8.5); NEUTROPHILS % 60.4 % (36.0-66.0); PLATELET COUNT, AUTOMATED 245 10^3/uL (150-450); RED BLOOD COUNT 3.99 10^6/uL (4.00-5.40); WHITE BLOOD COUNT 7.1 10^3/uL (4.0-10.0)
[2024-08-15 10:20] LABS: ERYTHROCYTE SEDIMENTATION RATE 23 mm/hr (0-30)
[2024-08-15 10:42] LABS: C REACTIVE PROTEIN QUANTITATIV < 0.40 MG/DL (<1.0)
[2024-08-15 10:43] LABS: BLOOD UREA NITROGEN 20 MG/DL (9-23); CARBON DIOXIDE LEVEL 26 MMOL/L (20-31); CHLORIDE LEVEL 109 MMOL/L (98-107); CREATININE FOR GFR 0.92 MG/DL (0.55-1.30); GLOMERULAR FILTRATION RATE > 60.0 (>45); GLUCOSE, FASTING 98 MG/DL (74-106); POTASSIUM SERUM 4.5 MMOL/L (3.5-5.1); SODIUM LEVEL 141 MMOL/L (136-145)
[2024-08-15] MEDS: LIDOCAINE 4% CREAM 5GM (LMX4) TOP ONE (10:48)
[2024-08-15] MEDS ORDERED: DICL20GE TP (11:55)
[2024-08-15] MEDS ORDERED: LIDO1CRE2 TOP (11:55)
[2024-08-15 12:42] VITALS: BP 150/77; TEMP 97.1; O2SAT 99
== END 2024-08-15 12:49 | disposition home or self-care (01) ==
LOC: M ED 08:36
DX: M79.604 Pain in right leg (principal); M17.11 Unilateral primary osteoarthritis, right knee; I10 Essential (primary) hypertension; Z79.899 Other long term (current) drug therapy
CPT/HCPCS: 36415; 73564; 73590; 76882; 80048; 85025; 85652; 86140; 93971; 99283; Q9967

== ENCOUNTER → 2024-08-16 | Outpatient (CLI) | payer MEDICARE, OTHER ==
[~2024-08-16] MED LIST changes: +DICL20GE TP; +LIDO1CRE2 TOP
== END ==
LOC: M WHC 07:57
PROVIDERS: ATTEND Nurse Practitioner Adult Health
DX: Z12.31 Encounter for screening mammogram for malignant neoplasm of breast (principal)

== ENCOUNTER → 2024-10-07 | Outpatient (REF) | payer MEDICARE, OTHER ==
[~2024-10-07] MED LIST changes: -LIDO1CRE2 TOP; +LIDO4CRE12 TOP
== END ==
LOC: M LAB REF 16:21
PROVIDERS: ATTEND Nurse Practitioner Adult Health
DX: N39.0 Urinary tract infection, site not specified (principal)

== ENCOUNTER → 2025-07-06 | Outpatient (CLI) | payer MEDICARE, OTHER | LOC: M WUC 09:35 | PROVIDERS: ATTEND Nurse Practitioner Family | DX: M25.532 Pain in left wrist (principal) ==

== ENCOUNTER → 2025-08-17 | Outpatient (CLI) | payer MEDICARE, OTHER | LOC: M WHC 06:58 | PROVIDERS: ATTEND Nurse Practitioner Adult Health | DX: Z12.31 Encounter for screening mammogram for malignant neoplasm of breast (principal) ==